=== PATIENT | male | born 1935 | race Hispanic/Latino ===

== ENCOUNTER 2023-01-30 10:29 | Emergency (ER) | payer SELFPAY ==
[~2023-01-30] VITALS: Ht 170.2 cm; Wt 71.7 kg
[2023-01-30 10:43] VITALS: O2SAT 100
[2023-01-30] MEDS ORDERED: TAMSULOSIN HCL 0.4 MG CAP PO SCH (11:45)
[2023-01-30] MEDS ORDERED: LIDOCAINE JELLY 2% 10ML URO-JET TOP ONE (11:45)
[2023-01-30 12:21] LABS: CLARITY,URINE TURBID (CLEAR); COLOR,URINE YELLOW (YELLOW); KETONES,URINE NEGATIVE (NEGATIVE); LEUKOCYTE ESTERASE ,URINE SMALL (NEGATIVE); NITRITE,URINE NEGATIVE (NEGATIVE); PROTEIN,URINE DIPSTICK 2+ (NEGATIVE)
[2023-01-30 12:23] LABS: BACTERIA,URINE MANY /HPF; EPITHELIAL CELLS,URINE FEW /LPF; RBC,URINE >50 /HPF (0-5); WBC,URINE (MAN) >50 /HPF (0-5)
[2023-01-30] MEDS ORDERED: FLOMAX0.4 MG PO (12:30)
[2023-01-30] MEDS ORDERED: CEFDINIR300 MG PO (12:30)
[2023-01-30] MEDS ORDERED: CEFDINIR 300 MG CAP PO SCH (12:40)
== END 2023-01-30 12:52 | disposition home or self-care (01) ==
LOC: ER 11:10
DX: R33.9 Retention of urine, unspecified (principal); N39.0 Urinary tract infection, site not specified; N48.89 Other specified disorders of penis
CPT/HCPCS: 81001; 87086; 87186; 99283